=== PATIENT | female | born 1975 | race Caucasian/White ===

== ENCOUNTER → 2018-09-03 | Outpatient (CLI) | payer OTHER | LOC: COL.RAD 09:46 | DX: Z02.71 Encounter for disability determination (principal); M54.5 Low back pain ==

== ENCOUNTER → 2018-10-09 | Outpatient (CLI) | payer MEDICAID | LOC: COL.CARD 10:45 | DX: R56.9 Unspecified convulsions (principal) ==

== ENCOUNTER → 2018-11-13 | Outpatient (CLI) | payer MEDICAID | LOC: COL.RAD 09:27 | DX: R56.9 Unspecified convulsions (principal) | CPT/HCPCS: A9585 ==

== ENCOUNTER → 2019-03-25 | Outpatient (CLI) | payer MEDICAID | LOC: COL.RAD 03-24 12:30 | DX: M51.36 Other intervertebral disc degeneration, lumbar region (principal) ==

== ENCOUNTER → 2019-05-05 | Outpatient (CLI) | payer MEDICAID | LOC: MHCPAIN 08:18 | DX: G89.29 Other chronic pain (principal); M47.817 Spondylosis without myelopathy or radiculopathy, lumbosacral region; M53.3 Sacrococcygeal disorders, not elsewhere classified | CPT/HCPCS: G0463 ==

== ENCOUNTER 2020-04-09 18:16 | Emergency (ER) | payer SELFPAY ==
[~2020-04-09] VITALS: Ht 149.9 cm; Wt 90.0 kg
[2020-04-09 18:30] VITALS: BP 117/90; TEMP 98.8
[2020-04-09 20:20] VITALS: PULSE 90
== END 2020-04-09 20:20 | disposition home or self-care (01) ==
LOC: COL.ER 18:16
DX: S61.011A Laceration without foreign body of right thumb without damage to nail, initial encounter (principal); Z88.5 Allergy status to narcotic agent; Z23 Encounter for immunization; W26.8XXA Contact with other sharp object(s), not elsewhere classified, initial encounter; Y92.009 Unspecified place in unspecified non-institutional (private) residence as the place of occurrence of the external cause

== ENCOUNTER → 2020-04-19 | Outpatient (CLI) | payer SELFPAY ==
[2020-04-19 16:35] VITALS: BP 140/60; PULSE 99; TEMP 98.1
== END ==
LOC: COL.ER 16:15
DX: Z48.02 Encounter for removal of sutures (principal)

== ENCOUNTER 2021-04-23 20:52 | Emergency (ER) | payer SELFPAY ==
[~2021-04-23] VITALS: Ht 149.9 cm; Wt 90.9 kg
[2021-04-23 21:09] VITALS: TEMP 97.8
[2021-04-23 22:06] LABS: BASO # 0.1 (0.0-0.2); BASO % 0.7 % (0.0-2.0); EOS # 0.5 (0.0-0.7); EOS % 6.8 % (0-4.0); GRAN # 3.7 (1.4-6.5); GRAN % 52.7 % (42.2-75.2); HEMOGLOBIN 10.9 g/dl (12.5-16.0); LYMPH # 2.2 (1.2-3.4); LYMPH % 31.1 % (20.0-51.0); MEAN CELL VOLUME 95 fl (80.0-100.0); MEAN CORPUSCULAR HEMOGLOBIN 30 pg (27.0-31.0); MEAN CORPUSCULAR HGB CONC 31 g/dl (33.0-37.0); MEAN PLATELET VOLUME 10.8 fl (7.4-10.4); MONO # 0.6 (0.1-0.6); MONO % 8.6 % (1.7-9.3); PLATELET COUNT 305 K/mm3 (130-400); RED BLOOD COUNT 3.68 M/mm3 (4.10-5.30); REDCELL DISTRIBUTION WIDTH-CV 13.3 % (11.5-14.5)
[2021-04-23 22:26] LABS: CALCIUM 9.5 mg/dL (8.4-10.2); CREATININE, serum 0.71 (0.52-1.25); POTASSIUM 3.8 mmol/L (3.4-5.0)
[2021-04-23] MEDS ORDERED: PROAIR HFA0.09 MG/AC IH (22:32)
[2021-04-23] MEDS ORDERED: NORVASC 5MG5 MG/TAB PO (22:33)
[2021-04-23] MEDS ORDERED: LATISSE 5 ML5 ML TOP (22:33)
[2021-04-23] MEDS ORDERED: ATRALIN0.05% TP (22:33)
[2021-04-23] MEDS ORDERED: FLEXERIL 1010 MG/TAB PO (22:34)
[2021-04-23] MEDS ORDERED: CYMBALTA 30MG30 MG PO (22:34)
[2021-04-23] MEDS ORDERED: ALLEGRA 180MG180 MG PO (22:35)
[2021-04-23] MEDS ORDERED: RT ADVAIR 228 DISKUS IH (22:35)
[2021-04-23] MEDS ORDERED: LINZESS290CAP PO (22:36)
[2021-04-23] MEDS ORDERED: VYVANSE70 MG PO (22:36)
[2021-04-23] MEDS ORDERED: GLUCOPHAGE1000 MG PO (22:37)
[2021-04-23] MEDS ORDERED: PRIL40 PO (22:37)
[2021-04-23] MEDS ORDERED: DITROPAN 5MG TAB5 MG PO (22:37)
[2021-04-23] MEDS ORDERED: TOPAMAX 100MG100 M1 PO (22:38)
[2021-04-23] MEDS ORDERED: MAXALT MLT10 MG/TAB PO (22:38)
[2021-04-23] MEDS ORDERED: SEROQUEL300 MG PO (22:38)
[2021-04-23] MEDS ORDERED: TRETIN X TP (22:39)
[2021-04-23] MEDS ORDERED: AMBIEN 10MG10 MG PO (22:40)
[2021-04-23] MEDS ORDERED: GEODON80 MG PO (22:40)
[2021-04-23 23:06] VITALS: BP 145/98; PULSE 97
== END 2021-04-23 23:10 | disposition home or self-care (01) ==
LOC: COL.ER 20:52
PROVIDERS: Emergency Medicine
DX: S92.352A Displaced fracture of fifth metatarsal bone, left foot, initial encounter for closed fracture (principal); S61.011A Laceration without foreign body of right thumb without damage to nail, initial encounter; S51.812A Laceration without foreign body of left forearm, initial encounter; W26.8XXA Contact with other sharp object(s), not elsewhere classified, initial encounter; Y92.019 Unspecified place in single-family (private) house as the place of occurrence of the external cause